=== PATIENT | male | born 1975 | race Caucasian/White ===

== ENCOUNTER 2016-09-05 11:41 | Emergency (ER) | payer BC ==
[2016-09-05] MEDS ORDERED: RX INFO: IV CONTRAST WAS GIVEN 1 EACH MISC MISCELLANE PRN (12:41)
[2016-09-05] MEDS ORDERED: methylPREDNISolone SOD SUCCI 125 MG/2 ML VIAL IV STA (12:41)
[2016-09-05] MEDS ORDERED: diphenhydrAMINE 50 MG/ML 1 ML VIAL IVP STA (12:41)
[2016-09-05] MEDS ORDERED: FAMOTIDINE 20 MG/2 ML VIAL IV STA (12:41)
--- NOTE | 2016-09-05 13:04 | ED ---
General Adult HPI <Isak Gregory - Last Filed: 09/05/16 14:17> - General Source: patient, family, RN notes reviewed Mode of arrival: ambulatory Limitations: no limitations <Segundo Teixeira - Last Filed: 09/05/16 14:19> - General Chief complaint: Shortness of Breath Stated complaint: neck injury, throat swelling, SMOOTH Time Seen by Provider: 09/05/16 12:30 - History of Present Illness Initial comments: Patient is a 41-year-old male who presents emergency room today with a chief complaint of increased neck pain. Patient does admit that 2 days ago he was helping a friend move when a box accidentally hit him in the anterior portion of his neck. He states he did discuss some pain initially. He does admit that he's felt some "popping" type sensation to the front and left side of the neck. Patient does admit that yesterday he was noticing that he was losing his voice. He does admit to history of an upper respiratory infection last week. Patient admits that today he was having difficult time speaking. He states he feels more swollen particularly on the left side of his neck. Patient does admit that he went to his family doctor had an x-ray obtained. States advised come here to the emergency room. Patient does admit to pain when he tries to swallow or when he takes a deep breath located into the anterior portion of his neck. Patient denies any recent fever, chills, shortness of breath, chest pain, back pain, abdominal pain, nausea or vomiting, numbness or tingling, dysuria or hematuria, constipation or diarrhea, headaches or visual changes, or any other complaints. (Segundo Teixeira) - Related Data Home Medications Medication Instructions Recorded Confirmed Cetirizine HCl [Zyrtec] 10 mg PO HS 09/05/16 09/05/16 Fluticasone Nasal [place] [Flonase 1 spray EA NOSTRIL HS 09/05/16 09/05/16 Nasal [place]] Multivitamins, Thera [Multivitamin] 1 tab PO HS 09/05/16 09/05/16 QUEtiapine [SEROquel] 50 mg PO HS 09/05/16 09/05/16 fluvoxaMINE MALEATE [Luvox] 200 mg PO HS 09/05/16 09/05/16 Allergies Allergy/AdvReac Type Severity Reaction Status Date / Time albuterol Allergy Unknown Verified 09/05/16 12:16 Penicillins Allergy Unknown Verified 09/05/16 12:16 shellfish derived [Shellfish] Allergy Unknown Verified 09/05/16 12:16 Review of Systems ROS Other: All systems not noted in ROS Statement are negative. <Isak Gregory - Last Filed: 09/05/16 14:17> ROS Other: All systems not noted in ROS Statement are negative. <Segundo Teixeira - Last Filed: 09/05/16 14:19> ROS Statement: Those systems with pertinent positive or pertinent negative responses have been documented in the HPI. Past Medical History Additional Past Medical History / Comment(s): POLYCYSTIC KIDNEY DISEASE History of Any Multi-Drug Resistant Organisms: None Reported Past Surgical History: Appendectomy Past Psychological History: ADD/ADHD Smoking Status: Never smoker Past Alcohol Use History: Occasional Past Drug Use History: None Reported <PuneetSegundo - Last Filed: 09/05/16 14:19> General Exam <Isak Gregory - Last Filed: 09/05/16 14:17> Limitations: no limitations <Segundo Teixeira - Last Filed: 09/05/16 14:19> - General Exam Comments Initial Comments: General: The patient is awake and alert, in no distress, and does not appear acutely ill. Eye: Pupils are equal, round and reactive to light, extra-ocular movements are intact. No nystagmus. There is normal conjunctiva bilaterally. No signs of icterus. Ears, nose, mouth and throat: There are moist mucous membranes and no oral lesions. Neck: The neck is supple, there is no tenderness or JVD. Cardiovascular: There is a regular rate and rhythm. No murmur, rub or gallop is appreciated. Respiratory: Lungs are clear to auscultation, respirations are non-labored, breath sounds are equal. No wheezes, stridor, rales, or rhonchi. Gastrointestinal: Soft, non-distended, non-tender abdomen without masses or organomegaly noted. There is no rebound or guarding present. No CVA tenderness. Bowel sounds are unremarkable. Musculoskeletal: Normal ROM, no tenderness. Strength 5/5. Sensation intact. Pulses equal bilaterally 2+. Neurological: A&O x 3. CN II-XII intact, There are no obvious motor or sensory deficits. Coordination appears grossly intact. Speech is normal. Skin: Skin is warm and dry and no rashes or lesions are noted. Psychiatric: Cooperative, appropriate mood & affect, normal judgment. (Segundo Teixeira) Medical Decision Making - Lab Data Result diagrams: 09/05/16 13:10 09/05/16 13:10 <Isak Gregory - Last Filed: 09/05/16 14:17> - Lab Data Result diagrams: 09/05/16 13:10 09/05/16 13:10 <Segundo Teixeira - Last Filed: 09/05/16 14:19> - Medical Decision Making Patient reevaluated by myself, Dr. Gregory. Patient is able to speak minimally. Computed tomography scan reviewed showing no acute abnormality. Patient is comfortable with discharge as he does have an appointment with ENT, Dr. Santos at [address] [place] [address]. Patient was offered admission for observation however would like to make the ENT appointment. Patient is advised to return if symptoms worsened. Patient is advised that he may need steroid prescription by ENT. (Isak Gregory) - Lab Data Lab Results 09/05/16 09/05/16 Range/Units 13:10 13:10 WBC 5.6 (3.8-10.6) k/uL RBC 4.97 (4.30-5.90) m/uL Hgb 14.4 (13.0-17.5) gm/dL Hct 42.4 (39.0-53.0) % MCV 85.4 (80.0-100.0) fL MCH 28.9 (25.0-35.0) pg MCHC 33.8 (31.0-37.0) g/dL RDW 13.3 (11.5-15.5) % Plt Count 237 (150-450) k/uL Neutrophils % 61 % Lymphocytes % 27 % Monocytes % 6 % Eosinophils % 3 % Basophils % 1 % Neutrophils # 3.5 (1.3-7.7) k/uL Lymphocytes # 1.5 (1.0-4.8) k/uL Monocytes # 0.3 (0-1.0) k/uL Eosinophils # 0.2 (0-0.7) k/uL Basophils # 0.1 (0-0.2) k/uL Sodium 145 (137-145) mmol/L Potassium 4.1 (3.5-5.1) mmol/L Chloride 108 H (98-107) mmol/L Carbon Dioxide 23 (22-30) mmol/L Anion Gap 14 mmol/L BUN 15 (9-20) mg/dL Creatinine 1.15 (0.66-1.25) mg/dL Est GFR (MDRD) Af Amer >60 (>60 ml/min/1.73 sqM) Est GFR (MDRD) Non-Af >60 (>60 ml/min/1.73 sqM) Glucose 92 (74-99) mg/dL Calcium 9.2 (8.4-10.2) mg/dL Total Bilirubin 0.8 (0.2-1.3) mg/dL AST 29 (17-59) U/L ALT 56 (21-72) U/L Alkaline Phosphatase 66 (38-126) U/L Total Protein 7.3 (6.3-8.2) g/dL Albumin 4.4 (3.5-5.0) g/dL Disposition <Isak Gregory - Last Filed: 09/05/16 14:17> Time of Disposition: 14:19 <Segundo Teixeira - Last Filed: 09/05/16 14:19> Clinical Impression: Neck injury Disposition: HOME SELF-CARE Condition: Good Additional Instructions: Please follow-up with ENT Dr. Santos as discussed. Please return here to emergency room for symptoms increase or worsen or for any other concerns.
[2016-09-05 13:40] LABS: Basophils # (A) 0.1 k/uL (0-0.2); Basophils % (A) 1 %; CH 29.4; CHCM 34.6; Eosinophils # (A) 0.2 k/uL (0-0.7); Eosinophils % (A) 3 %; HCT 42.4 % (39.0-53.0); HDW 2.91; HGB 14.4 gm/dL (13.0-17.5); Luc # (Auto) 0.13; Luc % (Auto) 2; Lymphocytes # (A) 1.5 k/uL (1.0-4.8); Lymphocytes % (A) 27 %; MCH 28.9 pg (25.0-35.0); MCHC 33.8 g/dL (31.0-37.0); MCV 85.4 fL (80.0-100.0); Mean Platelet Volume 7.4; Monocytes # (A) 0.3 k/uL (0-1.0); Monocytes % (A) 6 %; Neutrophils # (A) 3.5 k/uL (1.3-7.7); Neutrophils % (A) 61 %; RBC 4.97 m/uL (4.30-5.90); RDW 13.3 % (11.5-15.5); WBC 5.6 k/uL (3.8-10.6); WBC (Perox) 5.58
[2016-09-05 13:49] LABS: ALT 56 U/L (21-72); AST 29 U/L (17-59); Alkaline Phosphatase 66 U/L (38-126); Anion Gap 14 mmol/L; Blood Urea Nitrogen 15 mg/dL (9-20); Calcium 9.2 mg/dL (8.4-10.2); Carbon Dioxide 23 mmol/L (22-30); Chloride 108 mmol/L (98-107); Glucose 92 mg/dL (74-99); Non-African American GFR(MDRD) >60 (>60 ml/min/1.73 sqM); Potassium 4.1 mmol/L (3.5-5.1); Sodium 145 mmol/L (137-145); Total Bilirubin 0.8 mg/dL (0.2-1.3); Total Protein 7.3 g/dL (6.3-8.2)
--- NOTE | 2016-09-05 14:04 | CT ---
EXAMINATION TYPE: CT soft tissue neck w con DATE OF EXAM: 09/05/2016 1:49 PM COMPARISON: NONE HISTORY: Neck injury with throat swelling CT DLP: 609.7 mGycm CONTRAST: CT scan of the neck is performed with IV Contrast, patient injected with 100 ml mL of Omnipaque 300. Contrast enhanced CT of the neck was performed from the skull base through the lung apices. AIRWAY: The supraglottic, glottic, and subglottic portions of the airway appear patent and free of mass. SALIVARY GLANDS: The submandibular and parotid glands are free of mass or inflammatory process. THYROID GLAND: No nodules or masses seen. LYMPH NODES: No adenopathy seen greater than 1cm. LUNG APICES: No nodule or mass is seen. OTHER: Vascular structures are patent. No significant degenerative change of the cervical spine. N o abscess seen. Chronic maxillary and ethmoid sinusitis. IMPRESSION: No distinct abnormality seen at this time.
[2016-09-05 14:26] VITALS: BP 154/91; PULSE 68; RESP 20
== END 2016-09-05 14:29 | disposition home or self-care (01) ==
LOC: EC 11:41
DX: S19.9XXA Unspecified injury of neck, initial encounter (principal); W22.8XXA Striking against or struck by other objects, initial encounter; Z79.51 Long term (current) use of inhaled steroids; Z79.899 Other long term (current) drug therapy; Z88.0 Allergy status to penicillin; Z88.8 Allergy status to other drugs, medicaments and biological substances
CPT/HCPCS: 36415; 80053; 85025; 70491; 99285; 96374; 96375 ×2; J1200; J2930; Q9967; 70360

== ENCOUNTER → 2016-09-05 | Outpatient (CLI) | payer BC ==
--- NOTE | 2016-09-05 11:31 | XR ---
EXAMINATION TYPE: XR soft tissue neck DATE OF EXAM: 09/05/2016 11:26 AM COMPARISON: NONE HISTORY: R07.0 Pain in throat TECHNIQUE: 2 views of the soft tissues of the neck are submitted. FINDINGS: The airway is patent. Normal appearing epiglottis. Retropharyngeal soft tissues are withi n normal limits. No evidence for radiopaque foreign body. IMPRESSION: No distinct abnormality appreciated at this time.
== END | disposition home or self-care (01) ==
LOC: RADXRMAIN 11:09
PROVIDERS: ATTEND Physician Assistant
DX: R07.0 Pain in throat (principal)
CPT/HCPCS: 70360

== ENCOUNTER → 2016-12-24 | Outpatient (CLI) | payer BC ==
--- NOTE | 2016-12-25 16:16 | MR ---
EXAMINATION TYPE: MR knee RT wo con DATE OF EXAM: 12/24/2016 7:41 AM COMPARISON: NONE HISTORY: 41-year-old male with right knee pain for one month. TECHNIQUE: Multiplanar, multisequence imaging of the right knee is performed without IV contrast. FINDINGS: The ACL, PCL, MCL, and LCL complex appear intact. There is an irregular oblique tear extending through the posterior horn of the medial meniscus to the junction with the meniscal body. There is mild diffuse thinning of medial compartment articular cart ilage. Some degenerative signal within the posterior horn of the lateral meniscus. Overall lateral compartme nt articular cartilage volume is maintained. Patellofemoral compartment articular cartilage volume is maintained. Extensor mechanism is intact. Nonspecific anterior soft tissue swelling overlying the patella and patellar tendon. Trace effusion w ithin the deep infrapatellar bursa and a small to moderate knee joint effusion. Trace early Huntley's c yst formation with fluid insinuating between the tendons of the medial head gastrocnemius and semimem branosus. Normal popliteal artery anatomy and muscle bulk. While there is no suspicious bone marrow replacement, there is a focal 7 mm popcorn-like mildly T2 hy perintense lesion within the anterior medial femoral condyle at the level of the metaphysis. There is suggestion of some chemical shift artifact and a small chondroid lesion such as enchondroma is sugge sted. IMPRESSION: 1. Oblique tear posterior horn medial meniscus. 2. Prominent anterior soft tissue swelling; question soft tissue contusion. 3. Mild to moderate knee joint effusion.
== END | disposition home or self-care (01) ==
LOC: RADMRIMAIN 07:06
PROVIDERS: ATTEND Family Medicine
DX: S83.241A Other tear of medial meniscus, current injury, right knee, initial encounter (principal)

== ENCOUNTER 2018-08-17 15:44 | Outpatient (CLI) | payer BC ==
--- NOTE | 2018-08-17 16:14 | XR ---
EXAMINATION TYPE: XR chest 2V DATE OF EXAM: 08/17/2018 COMPARISON: None HISTORY: Pneumonia TECHNIQUE: Frontal and lateral views of the chest are obtained. FINDINGS: Lateral exam show some questionable posterior density at the lung bases. No pneumothorax o r pleural effusion. Cardiomediastinal silhouette is within normal limits. No evident pneumothorax or pleural effusion. IMPRESSION: Findings could represent basilar pneumonia, differential includes subsegmental atelectas is.
[2018-08-17 16:59] LABS: Basophils # (A) 0.1 k/uL (0-0.2); Basophils % (A) 1 %; Eosinophils # (A) 0.3 k/uL (0-0.7); Eosinophils % (A) 4 %; HCT 46.1 % (39.0-53.0); HGB 15.1 gm/dL (13.0-17.5); Lymphocytes # (A) 1.5 k/uL (1.0-4.8); Lymphocytes % (A) 20 %; MCHC 32.8 g/dL (31.0-37.0); MCV 85.2 fL (80.0-100.0); Mean Platelet Volume 6.8; Monocytes # (A) 0.6 k/uL (0-1.0); Monocytes % (A) 8 %; Neutrophils # (A) 4.9 k/uL (1.3-7.7); Neutrophils % (A) 64 %; Platelet Count 186 k/uL (150-450); RBC 5.42 m/uL (4.30-5.90); RDW 13.6 % (11.5-15.5); WBC 7.6 k/uL (3.8-10.6)
[2018-08-17 17:08] LABS: Albumin 4.7 g/dL (3.5-5.0); Calcium 9.4 mg/dL (8.4-10.2); Total Bilirubin 0.6 mg/dL (0.2-1.3); Total Protein 7.5 g/dL (6.3-8.2)
== END 2018-08-17 16:31 | disposition home or self-care (01) ==
LOC: PEDOP 15:44
PROVIDERS: ATTEND Family Medicine
DX: J18.9 Pneumonia, unspecified organism (principal)
CPT/HCPCS: 71046; 80053; 85025; 87502; 99212

== ENCOUNTER → 2018-12-19 | Outpatient (CLI) | payer BC ==
--- NOTE | 2018-12-19 11:54 | XR ---
EXAMINATION TYPE: XR chest 2V DATE OF EXAM: 12/19/2018 COMPARISON: Chest x-ray August 17, 2018 HISTORY: J 18.9. Recent pneumonia. TECHNIQUE: Frontal and lateral views of the chest are obtained. FINDINGS: Some eventration of hemidiaphragms is redemonstrated. There is no new suspicious focal air space opacity, pleural effusion, or pneumothorax seen. On lateral view there is improved aeration o f posterior lower lungs noted. The cardiac silhouette size remains within normal limits. The osseou s structures are intact. IMPRESSION: No suspicious acute pulmonary process on current study.
== END ==
LOC: RADXRMAIN 11:33
PROVIDERS: ATTEND Family Medicine
DX: J18.9 Pneumonia, unspecified organism (principal)
CPT/HCPCS: 71046

== ENCOUNTER → 2019-05-01 | Outpatient (CLI) | payer BC ==
[2019-05-01 15:26] LABS: Calcium 9.2 mg/dL (8.4-10.2); Potassium 3.9 mmol/L (3.5-5.1)
--- NOTE | 2019-05-01 16:34 | US ---
EXAMINATION TYPE: US kidneys/renal and bladder DATE OF EXAM: 05/01/2019 COMPARISON: US 2013 CLINICAL HISTORY: N20.0. Polycystic kidney disease EXAM MEASUREMENTS: Right Kidney: 14.2 x 7.5 x 6.2 cm Left Kidney: 14.1 x 6.7 x 6.1 cm Right Kidney: enlarged, multiple cysts with largest measuring 2.8 x 2.5 x 3.1cm, multiple tiny echoge emmanuel foci scattered throughout Left Kidney: enlarged, multiple cysts with largest measuring 3.1 x 3.1 x 3.0cm, 1.2cm, 1.2cm echogeni c shadowing focus mid pole, multiple tiny echogenic foci scattered throughout Bladder: wnl Bilateral Jets seen: yes There is no evidence for hydronephrosis at this point in time . The urinary bladder is anechoic. Bi lateral ureteral jets are seen. IMPRESSION: Findings consistent with polycystic kidney disease redemonstrated is enlarged kidneys wit h multiple simple appearing cysts. Due to number and size of lesions that cannot be accurately charac terized on ultrasound evaluation.
== END | disposition home or self-care (01) ==
LOC: RADUSMAIN 14:23
PROVIDERS: ATTEND Urology
DX: N20.0 Calculus of kidney (principal); N40.1 Benign prostatic hyperplasia with lower urinary tract symptoms
CPT/HCPCS: 76770; 80048; 84153

== ENCOUNTER → 2020-12-11 | Outpatient (CLI) | payer BC ==
--- NOTE | 2020-12-12 02:58 | MR ---
EXAMINATION TYPE: MR angio head wo con DATE OF EXAM: 12/11/2020 COMPARISON: None HISTORY: MRA to rule out cerebral aneurysm. Kidney disease can be linked to bleed. Chonic headaches g etting worse, history of polycystic kidney disease. MR angiographic images were obtained of the intracerebral arterial circulation without contrast. There are 3-D post processed images. There is arterial flow in the vertebrobasilar artery system. The left posterior cerebral artery appea rs to fill almost entirely through the left posterior communicating artery. There is arterial flow in the anterior middle and posterior cerebral arteries. There is no mass effect. There is no evidence o f arterial stenosis. There is no evidence of an aneurysm. The remainder of exam is unremarkable. IMPRESSION: Normal MR angiography exam of the brain. Left posterior cerebral artery flow is normal variation.
== END | disposition home or self-care (01) ==
LOC: RADMRIMAIN 17:57
PROVIDERS: ATTEND Internal Medicine Nephrology
DX: R51.9 Headache, unspecified (principal)
CPT/HCPCS: 70544

== ENCOUNTER → 2021-04-30 | Outpatient (CLI) | payer BC | LOC: LABWHC1 14:15 | PROVIDERS: ATTEND Family Medicine | DX: Z20.822 Contact with and (suspected) exposure to COVID-19 (principal) | CPT/HCPCS: U0003; C9803; U0005 ==

== ENCOUNTER → 2022-12-01 | Outpatient (CLI) | payer BC ==
--- NOTE | 2022-12-01 13:26 | XR ---
EXAMINATION TYPE: XR chest 2V DATE OF EXAM: 12/01/2022 COMPARISON: 12/19/2018 HISTORY: Chest pain TECHNIQUE: Frontal and lateral views of the chest are obtained. FINDINGS: There is no focal air space opacity. No evidence for pneumothorax. No pleural effusion. The cardiac silhouette size is within normal limits. The osseous structures are grossly intact. IMPRESSION: 1. No acute cardiopulmonary process.
== END | disposition home or self-care (01) ==
LOC: RADXRMAIN 13:01
PROVIDERS: ATTEND Family Medicine
DX: R05.9 Cough, unspecified (principal)
CPT/HCPCS: 71046

== ENCOUNTER → 2022-12-02 | Outpatient (CLI) | payer BC ==
[2022-12-02 15:41] LABS: Basophils # (A) 0.07 X 10*3/uL (0.00-0.10); Basophils % (A) 1.2 %; Eosinophils # (A) 0.35 X 10*3/uL (0.04-0.35); Eosinophils % (A) 5.9 %; HCT 47.4 % (39.6-50.0); HGB 15.6 g/dL (13.0-17.0); Immature Grans, Automated 0.3 %; Lymphocytes % (A) 32.1 %; MCH 28.7 pg (27.0-32.0); MCHC 32.9 g/dL (32.0-37.0); MCV 87.3 fL (80.0-97.0); Mean Platelet Volume 10.2 fL (9.5-12.2); Monocytes # (A) 0.39 X 10*3/uL (0.20-1.00); Monocytes % (A) 6.6 %; NRBC Per 100 WBC 0 /100 WBCS (0.0-0.0); Neutrophils # (A) 3.18 X 10*3/uL (1.80-7.70); Neutrophils % (A) 53.9 %; Platelet Count 255 X 10*3/uL (140-440); RBC 5.43 X 10*6/uL (4.40-5.60); RDW 13.1 % (11.5-14.5); WBC 5.91 X 10*3/uL (4.50-10.00)
[2022-12-02 17:09] LABS: HIV 2 AB Non-Reactive (Non-Reactive); HIV AB P24 Non-Reactive (Non-Reactive); HIV P24 AG Non-Reactive (Non-Reactive)
[2022-12-02 17:27] LABS: ALT 26 U/L (10-49); AST 20 U/L (14-35); African American GFR (CKD) 67.6 (60.0-200.0); Albumin 4.8 g/dL (3.8-4.9); Albumin/Globulin Ratio 2.02 (1.60-3.17); Alkaline Phosphatase 53 U/L (41-126); BUN/Creat Ratio 15.38 Ratio (12.00-20.00); Calcium 9.5 mg/dL (8.7-10.3); Carbon Dioxide 25.5 mmol/L (20.0-27.5); Chloride 107 mmol/L (96-109); Chol/HDL Ratio 5.06 Ratio; Globulin 2.4 g/dL (1.6-3.3); Glucose 95 mg/dL (70-110); LDL Cholesterol,Calculated 88.2 mg/dL (0.0-131.0); Non-African American GFR(CKD) 58.3 (60.0-200.0); Potassium 4.3 mmol/L (3.5-5.5); Sodium 144 mmol/L (135-145); Total Protein 7.1 g/dL (6.2-8.2)
== END | disposition home or self-care (01) ==
LOC: LABWHC1 08:09
PROVIDERS: ATTEND Family Medicine
DX: Z12.5 Encounter for screening for malignant neoplasm of prostate (principal); Z11.4 Encounter for screening for human immunodeficiency virus [HIV]; E78.5 Hyperlipidemia, unspecified
CPT/HCPCS: 36415; 80053; 80061; 84153; 84443; 85025; 87390

== ENCOUNTER 2025-02-03 11:35 | Emergency (ER) | payer BC ==
--- NOTE | 2025-02-03 11:52 | ED ---
Back Pain HPI - General Chief Complaint: Back Pain/Injury Stated Complaint: Back Pain Time Seen by Provider: 02/03/25 11:37 Source: patient, EMS, RN notes reviewed Mode of arrival: EMS Limitations: no limitations - History of Present Illness Initial Comments: This is a 49-year-old male who presents to the emergency department for low back pain. Patient states that he was doing yard work yesterday and shoveling dirt. [facility] a large pop in his back followed by pain. He was able to do stretches and seemed to get better as the day progressed yesterday. However, when he woke up this morning he was unable to get out of bed or move due to the pain. Pain is in the center of the lower back. One side is not worse than the other. Denies any radiation of pain or loss of bowel/bladder control or saddle anesthesia. MD Complaint: back pain - Related Data Home Medications Medication Instructions Recorded Confirmed Cetirizine HCl [Zyrtec] 10 mg PO HS 09/05/16 09/05/16 Fluticasone Nasal [place] [Flonase 1 spray EA NOSTRIL HS 09/05/16 09/05/16 Nasal [place]] Multivitamins, Thera [Multivitamin] 1 tab PO HS 09/05/16 09/05/16 QUEtiapine [SEROquel] 50 mg PO HS 09/05/16 09/05/16 fluvoxaMINE MALEATE [Luvox] 200 mg PO HS 09/05/16 09/05/16 Previous Rx's Medication Instructions Recorded Cyclobenzaprine [Flexeril] 10 mg PO TID PRN #30 tab 02/03/25 Diclofenac Sodium [Voltaren] 75 mg PO BID PRN #30 tab 02/03/25 HYDROcodone/APAP 5-325MG [[place] 1 tab PO Q6HR PRN 3 Days #12 tab 02/03/25 5-325] Lidocaine 5% Patch [Lidoderm 5% 1 patch TOPICAL DAILY PRN #30 patch 02/03/25 Patch] Allergies Allergy/AdvReac Type Severity Reaction Status Date / Time albuterol Allergy Unknown Verified 02/03/25 11:43 Penicillins Allergy Unknown Verified 02/03/25 11:43 shellfish derived [Shellfish] Allergy Unknown Verified 02/03/25 11:43 Review of Systems ROS Statement: Those systems with pertinent positive or pertinent negative responses have been documented in the HPI. ROS Other: All systems not noted in ROS Statement are negative. Past Medical History Past Medical History: Hypertension Additional Past Medical History / Comment(s): POLYCYSTIC KIDNEY DISEASE, OCD History of Any Multi-Drug Resistant Organisms: None Reported Past Surgical History: Appendectomy, Tonsillectomy Additional Past Surgical History / Comment(s): vasectomy Past Psychological History: ADD/ADHD Smoking Status: Never smoker Past Alcohol Use History: Occasional Past Drug Use History: None Reported General Exam Limitations: no limitations General appearance: alert, in no apparent distress Head exam: Present: atraumatic, normocephalic, normal inspection Cardiovascular Exam: Present: regular rate, normal rhythm Back exam: Present: tenderness (Lower back) Neurological exam: Present: alert, oriented X3, CN II-XII intact Psychiatric exam: Present: normal affect, normal mood Skin exam: Present: warm, dry, intact, normal color. Absent: rash Course Vital Signs 02/03/25 02/03/25 02/03/25 11:36 13:24 14:20 Temperature 98.4 F 98.6 F Pulse Rate 66 51 L 48 L Respiratory 20 18 18 Rate Blood Pressure 147/73 130/76 133/90 O2 Sat by Pulse 97 96 96 Oximetry Medical Decision Making - Medical Decision Making This is a 49 year old male who presents to the emergency department for low back pain. Was pt. sent in by a medical professional or institution? @ -No Did you speak to anyone other than the patient for history? @ -No Did you review nursing and triage notes? @ -Yes, and I agree, it is accurate with regards to the patient's symptoms. Were old charts reviewed? @ -No Differential Diagnosis? @ -Differential Back Pain: Strain, zoster, cauda equina syndrome, epidural abscess, vertebral osteomyelitis, discitis, fracture, subluxation, disc herniation, DJD, spinal stenosis, dissection, AAA, pancreatitis, peptic ulcer disease, pyelonephritis, kidney stone, this is not meant to be an all-inclusive list. EKG interpreted by me (3pts min.)? @ -Not obtained X-rays interpreted by me (1pt min.)? @ -Not obtained CT interpreted by me (1pt min.)? @ -CT scan of the lumbar spine obtained. My interpretation identifies no acute fractures. U/S interpreted by me (1pt. min.)? @ -Not obtained What testing was considered but not performed? (CT, X-rays, U/S, labs)? Why? @ -None What meds were considered but not given? Why? @ -None Did you discuss the management of the patient with other professionals? @ -No Did you reconcile home meds? @ -No Was smoking cessation discussed for >3mins.? @ -No Was critical care preformed (if so, how long)? @ -No Were there social determinants of health that impacted care today? How? (Homelessness, low income, unemployed, alcoholism, drug addiction, transportation, low edu. Level, literacy, decrease access to med. care, senior living, rehab)? @ -No Was there de-escalation of care discussed even if they declined? (Discuss DNR or withdrawal of care, Hospice)? @ -No What co-morbidities impacted this encounter? (DM, HTN, Smoking, COPD, CAD, Cancer, CVA, Hep., AIDS, mental health diagnosis, sleep apnea, morbid obesity)? @ -None Was patient admitted / discharged? @ -Discharged. CT scan of the abdomen and pelvis obtained demonstrating a broad-based disc bulge or herniation at L4-L5. Findings reviewed with the patient. Pain was treated in the emergency department. Prescription for diclofenac, Flexeril, [place], and lidocaine patches provided with dosing instructions reviewed. Information for follow-up with orthopedic spine provided. Patient discharged home in stable condition. Case discussed with ED attending Dr. Vela. Return precautions reviewed in depth, the patient is instructed to return to the emergency department with any new, worsening, or concerning symptoms. Patient verbalized understanding. Undiagnosed new problem with uncertain prognosis? @ -None Drug Therapy requiring intensive monitoring for toxicity (Heparin, Nitro, Insulin, Cardizem)? @ -None Were any procedures done? @ -None Diagnosis/symptom? @ -Lumbar disc herniation Acute, or Chronic, or Acute on Chronic? @ -Acute Uncomplicated (without systemic symptoms) or Complicated (systemic symptoms)? @ -Uncomplicated Side effects of treatment? @ -None Exacerbation, Progression, or Severe Exacerbation] @ -Not applicable Poses a threat to life or bodily function? @ -No - Radiology Data Radiology results: report reviewed, image reviewed Disposition Clinical Impression: Lumbar disc herniation Disposition: HOME SELF-CARE Instructions (If sedation given, give patient instructions): Lumbar Disc Herniation (ED) Additional Instructions: Return to the emergency department with any new, worsening, or concerning symptoms. Take the diclofenac twice daily for pain control. You may take this with Tylenol, however do not take it with any other anti-inflammatories such as ibuprofen, take one or the other. Take the Flexeril up to 3 times daily, however be aware that this may make you drowsy. You can also apply the lidocaine patches daily. Take the [place] sparingly when your pain is the most severe. Follow-up with orthopedic spine for reevaluation. You can follow-up with the providers listed below or one of your choosing. Follow up with your primary care provider in 1-2 days. Prescriptions: Cyclobenzaprine [Flexeril] 10 mg PO TID PRN #30 tab PRN Reason: Pain Lidocaine 5% Patch [Lidoderm 5% Patch] 1 patch TOPICAL DAILY PRN #30 patch PRN Reason: Pain HYDROcodone/APAP 5-325MG [[place] 5-325] 1 tab PO Q6HR PRN 3 Days #12 tab PRN Reason: Pain Diclofenac Sodium [Voltaren] 75 mg PO BID PRN #30 tab PRN Reason: Pain Is patient prescribed a controlled substance at d/c from ED?: Yes When asked, does pt state using other controlled substances?: No If prescribed controlled substance>3 days was MAPS reviewed?: Prescribed <3 Days Referrals: Carlitos Wolfe MD [Primary Care Provider] - 1-2 days Kale Aguilar DO [Doctor of Osteopathic Medicine] - 1-2 days Bette De La Cruz DO [Doctor of Osteopathic Medicine] - 1-2 days Time of Disposition: 13:50
[2025-02-03] MEDS: KETOROLAC 15 MG/ML 1 ML VIAL IVP STA ×2 (11:57→14:03)
[2025-02-03] MEDS: MORPHINE SULFATE 4 MG/ML SYRINGE IVP STA (11:59)
[2025-02-03] MEDS: ORPHENADRINE 30 MG/ML 2 ML VIAL IVP STA (12:02)
[2025-02-03] MEDS: DEXAMETHASONE SOD PHOSPHATE 10 MG/ML 1 ML VIAL IVP STA (12:07)
[2025-02-03] MEDS: LIDOCAINE 4% PATCH TOPICAL ONE (12:12)
--- NOTE | 2025-02-03 13:19 | CT ---
EXAMINATION TYPE: CT lumbar spine wo con DATE OF EXAM: 02/03/2025 12:41 PM COMPARISON: None CLINICAL INDICATION: Male, 49 years old with history of Low back pain; PHH, Low back pain after shove ling injury. TECHNIQUE: Unenhanced CT of the lumbar spine was performed. Bone and soft tissue window settings are submitted as well as coronal and sagittal reconstructions. CT DLP: 1696.[address] CTDI: mGy Automated exposure control for dose reduction was used. FINDINGS: L1-L2: Normal disc space height. No disc herniation protrusion or central stenosis. No facet joint arthropathy. No evidence for foraminal encroachment. L2-L3: Normal disc space height. No disc herniation protrusion or central stenosis. No facet joint arthropathy. No evidence for foraminal encroachment. L3-L4: Normal disc space height. No disc herniation protrusion or central stenosis. No facet joint arthropathy. No evidence for foraminal encroachment. L4-L5: Mild degenerative disc space narrowing. Broad-based posterior disc bulge posterocentrally into the left. Subligamentous herniation difficult to exclude. Resultant left lateral recess stenosis and left foraminal encroachment. L5-S1: Severe degenerative disc space narrowing with posterior disc bulge and spondylosis. Left later al recess stenosis. IMPRESSION: Broad-based disc bulge or herniation at L4-5 as discussed above. Left lateral recess stenosis. [facility], , 02/03/2025 1:17 PM
[2025-02-03 13:26] VITALS: RESP 18
[2025-02-03 14:21] VITALS: BP 133/90; PULSE 48; TEMP 98.6
== END 2025-02-03 14:21 | disposition home or self-care (01) ==
LOC: EC 11:35
DX: M51.26 Other intervertebral disc displacement, lumbar region (principal); Z88.0 Allergy status to penicillin; Z91.013 Allergy to seafood; Z88.8 Allergy status to other drugs, medicaments and biological substances
CPT/HCPCS: 72131; 99284; 96374; 96375; 96376; J2270; J1100; J2360; J3360; J1885